=== PATIENT | female | born 1955 | race American Indian/Alaskan Native ===

== ENCOUNTER 2016-09-19 02:12 | Emergency (ER) | payer OTHER ==
[2016-09-19 02:22] VITALS: BP 182/81
[2016-09-19] MEDS ORDERED: Silver Nitrate Applicator Each TOP ONE (02:55)
[2016-09-19] MEDS ORDERED: Oxymetazoline 0.05% Nasal Spray 15 ML Bottle NAS ONE (02:55)
--- NOTE | 2016-09-19 02:59 | EDM.PDOC ---
ED HPI ENT - General Chief Complaint: ENT Problem Stated Complaint: BLOODY NOSE, WONT STOP Time Seen by Provider: 09/19/16 02:56 Source of Information: Reports: Patient History Limitations: Reports: No limitations - History of Present Illness INITIAL COMMENTS - FREE TEXT/NARRATIVE: blow her nose then started bleeding. - Related Data Allergies/ADRs: Allergies Allergy/AdvReac Type Severity Reaction Status Date / Time codeine Allergy Nausea and Verified 09/19/16 02:18 Vomiting Home Meds: Home Meds Acetaminophen [Tylenol] 650 mg PO DAILY 08/27/15 [History] Calcium Citrate/Vitamin D3 [Calcium Cit-Vit D 315-200] 1 tab PO DAILY 08/27/15 [ History] Cholecalciferol (Vitamin D3) [Vitamin D3] 1,000 unit PO DAILY 08/27/15 [History] Diclofenac Sodium [Voltaren 1% Gel] 1 applic TOP ASDIRECTED 08/27/15 [History] Fexofenadine [Poppy] 180 mg PO DAILY 08/27/15 [History] Ibuprofen 600 mg PO Q8H PRN 08/27/15 [History] Multivitamin [Multi-Vitamin Daily] 1 tab PO DAILY 08/27/15 [History] metFORMIN [Glucophage XR] 1 tab PO DAILY 09/19/16 [History] Past Medical History HEENT History: Reports: Cataract, Impaired vision, Other (see below) Other HEENT History: WEARS CORRECTIVE LENSES Cardiovascular History: Reports: None Respiratory History: Reports: None Gastrointestinal History: Reports: Colon polyp Genitourinary History: Reports: None 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: Musculoskeletal History: Reports: Other (see below) Other Musculoskeletal History: DEGENERATIVE JOINT DISEASE Neurological History: Reports: None Psychiatric History: Reports: None Endocrine/Metabolic History: Reports: Diabetes, type II, Obesity/BMI 30+ Hematologic History: Reports: None Immunologic History: Reports: None Oncologic (Cancer) History: Reports: None Dermatologic History: Reports: None - Infectious Disease History Infectious Disease History: Reports: Chicken pox, Measles, Mumps - Past Surgical History Head Surgeries/Procedures: Reports: None Cardiovascular Surgical History: Reports: None Respiratory Surgical History: Reports: None GI Surgical History: Reports: Appendectomy, Cholecystectomy, Colonoscopy, Polypectomy Female Surgical History: Reports: Tubal ligation Endocrine Surgical History: Reports: None Neurological Surgical History: Reports: None Musculoskeletal Surgical History: Reports: Other (see below) Other Musculoskeletal Surgeries/Procedures:: INJECTION IN BILAT HANDS Oncologic Surgical History: Reports: None Dermatological Surgical History: Reports: None Social & Family History - Family History Oncologic: Reports: Breast Other Oncologic Family History: sister and mother breast cancer - Tobacco Use Smoking Status *Q: Never Smoker Used Tobacco, but Quit: Yes Month Tobacco Last Used: 06/15/2009 Second Hand Smoke Exposure: No - Caffeine Use Caffeine Use: Reports: Coffee - Recreational Drug Use Recreational Drug Use: No Drug Use in Last 12 Months: No ED ROS ENT - Review of Systems Review Of Systems: ROS reveals no pertinent complaints other than HPI. ED EXAM, ENT - Physical Exam Exam: See Below Exam Limited By: No limitations General Appearance: alert, WD/WN, mild distress, other (nose bleed) Nose: dried blood, other (right hasslebach) Mouth/Throat: Normal inspection Head: atraumatic Neck: non-tender, full range of motion Respiratory/Chest: no respiratory distress Cardiovascular: regular rate, rhythm GI/Abdominal: soft, non tender Neurological: alert, oriented, normal cognition, normal gait, no motor/sensory deficits Psychiatric: normal affect, normal mood Skin: Warm, Dry Lymphatic: no adenopathy ED ENT PROCEDURES - Epistaxis Procedure Indication: epistaxis, uncontrolled Recent anticoagulants/antiplatlets: No Uncontrolled HTN: No Recent septal/nasal surgery: No Site of bleeding: right nare Clearing of clots: patient blew nose Topical Meds: phenylephrine Ice pack to area: No Chemical cautery: silver nitrate topical Local anesthesia - Lidocaine (Xylocaine): 1% plain Local anesthetic volume: 1cc Complications: No Course - Vital Signs Last Recorded V/S: Last Vital Signs Temp 37 C 09/19/16 02:21 Pulse 78 09/19/16 02:21 Resp 18 09/19/16 02:21 BP 182/81 H 09/19/16 02:21 Pulse Ox 98 09/19/16 02:21 - Orders/Labs/Meds Meds: Medications Discontinued Medications Generic Name Dose Route Start Last Admin Trade Name Freq PRN Reason Stop Dose Admin Oxymetazoline HCl 2 ml 09/19/16 02:55 09/19/16 03:03 Afrin Original 0.05% Nasal [place] CHIO 09/19/16 02:56 2 ml ONETIME ONE Administration Silver Nitrate 2 each 09/19/16 02:55 04/16/17 03:04 Silver Nitrate TOP 09/19/16 02:56 2 each ONETIME ONE Administration - Re-Assessments/Exams Free Text/Narrative Re-Assessment/Exam: 09/19/16 03:44 s/p cautery = no further bleeding noted. Pt feeling good wants to go home. Departure - Departure Time of Disposition: 03:45 Disposition: Home, Self-Care 01 Condition: good Clinical Impression: Epistaxis Instructions: Nosebleed, [id number] Forms: ED Department Discharge Additional Instructions: 1) next 48 hours avoid bending straining. 2) no hot drinks for 48 hours 3) don't blow or pick nose. 4) use vaseline apply with Q-tip if nose feels dry 5) use humidifier in room 6) recheck as needed
== END 2016-09-19 03:51 | disposition home or self-care (01) ==
LOC: DL.ED 02:12
DX: R04.0 Epistaxis (principal); E11.9 Type 2 diabetes mellitus without complications; E66.9 Obesity, unspecified; Z88.5 Allergy status to narcotic agent; Z79.84 Long term (current) use of oral hypoglycemic drugs; Z79.899 Other long term (current) drug therapy; Z90.49 Acquired absence of other specified parts of digestive tract; Z98.51 Tubal ligation status
CPT/HCPCS: 30901; 99283; A9270

== ENCOUNTER 2016-09-20 22:26 | Emergency (ER) | payer OTHER ==
[2016-09-20] MEDS ORDERED: Oxymetazoline 0.05% Nasal Spray 15 ML Bottle NAS ONE (22:31)
[2016-09-20 22:33] VITALS: BP 167/75
--- NOTE | 2016-09-20 22:49 | EDM.PDOC ---
ED HPI ENT - General Chief Complaint: ENT Problem Stated Complaint: BLOODY NOSE SINICE YESTERDAY Time Seen by Provider: 09/20/16 22:30 Source of Information: Reports: Patient History Limitations: Reports: No limitations - History of Present Illness INITIAL COMMENTS - FREE TEXT/NARRATIVE: Minnie Garrison is a 60 year old female presenting to the ED with recurrence of a right sided nose bleed. She was seen yesterday morning with a right sided anterior nose bleed resolved with nasal packing, application of silver nitrate, and Afrin nasal spray. She was doing well at home until this evening. 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 She was able to slow the bleeding with direct pressure but there is still dripping. She last took Afrin nasal spray this morning. She denies history of bleeding or clotting disorders. She does have a history of allergies and wonders if this may be causing her trouble. - Related Data Allergies/ADRs: Allergies Allergy/AdvReac Type Severity Reaction Status Date / Time codeine Allergy Nausea and Verified 09/20/16 22:34 Vomiting Home Meds: Home Meds Acetaminophen [Tylenol] 650 mg PO DAILY 08/27/15 [History] Calcium Citrate/Vitamin D3 [Calcium Cit-Vit D 315-200] 1 tab PO DAILY 08/27/15 [ History] Cholecalciferol (Vitamin D3) [Vitamin D3] 1,000 unit PO DAILY 08/27/15 [History] Fexofenadine [Poppy] 180 mg PO DAILY 08/27/15 [History] Ibuprofen 600 mg PO Q8H PRN 08/27/15 [History] Multivitamin [Multi-Vitamin Daily] 1 tab PO DAILY 08/27/15 [History] metFORMIN [Glucophage XR] 1 tab PO DAILY 09/19/16 [History] Past Medical History HEENT History: Reports: Cataract, Impaired vision, Other (see below) Other HEENT History: WEARS CORRECTIVE LENSES Cardiovascular History: Reports: None Respiratory History: Reports: None Gastrointestinal History: Reports: Colon polyp Genitourinary History: Reports: None 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: Musculoskeletal History: Reports: Other (see below) Other Musculoskeletal History: DEGENERATIVE JOINT DISEASE Neurological History: Reports: None Psychiatric History: Reports: None Endocrine/Metabolic History: Reports: Diabetes, type II, Obesity/BMI 30+ Hematologic History: Reports: None Immunologic History: Reports: None Oncologic (Cancer) History: Reports: None Dermatologic History: Reports: None - Infectious Disease History Infectious Disease History: Reports: Chicken pox, Measles, Mumps - Past Surgical History Head Surgeries/Procedures: Reports: None Cardiovascular Surgical History: Reports: None Respiratory Surgical History: Reports: None GI Surgical History: Reports: Appendectomy, Cholecystectomy, Colonoscopy, Polypectomy Female Surgical History: Reports: Tubal ligation Endocrine Surgical History: Reports: None Neurological Surgical History: Reports: None Musculoskeletal Surgical History: Reports: Other (see below) Other Musculoskeletal Surgeries/Procedures:: INJECTION IN BILAT HANDS Oncologic Surgical History: Reports: None Dermatological Surgical History: Reports: None Social & Family History - Family History Oncologic: Reports: Breast Other Oncologic Family History: sister and mother breast cancer - Tobacco Use Smoking Status *Q: Never Smoker Used Tobacco, but Quit: Yes Month Tobacco Last Used: 06/15/2009 Second Hand Smoke Exposure: No - Caffeine Use Caffeine Use: Reports: Coffee - Recreational Drug Use Recreational Drug Use: No Drug Use in Last 12 Months: No ED ROS ENT - Review of Systems Review Of Systems: ROS reveals no pertinent complaints other than HPI. Constitutional: Reports: no symptoms. Denies: fever, chills HEENT: Reports: Other (see HPI) Respiratory: Reports: No Symptoms. Denies: Shortness of Breath Cardiovascular: Reports: No symptoms. Denies: Chest pain GI/Abdominal: Reports: No symptoms Musculoskeletal: Reports: no symptoms Skin: Reports: no symptoms Neurological: Reports: No Symptoms Hematologic/Lymphatic: Reports: no symptoms (no history of nosebleeds prior to yesterday) ED EXAM, ENT - Physical Exam Exam: See Below Exam Limited By: No limitations General Appearance: alert Eye Exam: bilateral eye: PERRL Ears: normal external exam Nose: active bleeding, other (right anterior nare towards the nasal septum with area of avina discoloration consistent with recent silver nitrite application; there is minimal ozing of blood just anterior to this area; no bleeding from the left nare) Mouth/Throat: Other (area of blood staining in the back of the throat from drainage) Head: atraumatic, normocephalic Neck: normal inspection, supple, non-tender Respiratory/Chest: no respiratory distress, lungs clear, normal breath sounds Cardiovascular: regular rate, rhythm, no murmur GI/Abdominal: soft, non tender Extremities: normal inspection Neurological: alert, oriented Psychiatric: normal affect Skin: Warm, Dry, No rash Lymphatic: no adenopathy Course - Vital Signs Last Recorded V/S: Last Vital Signs Temp 96.7 F 09/20/16 22:29 Pulse 75 09/20/16 22:29 Resp 18 09/20/16 22:29 BP 167/75 H 09/20/16 22:29 Pulse Ox 100 09/20/16 22:29 - Orders/Labs/Meds Meds: Medications Discontinued Medications Generic Name Dose Route Start Last Admin Trade Name [place] PRN Reason Stop Dose Admin Oxymetazoline HCl 1 ml 09/20/16 22:31 09/20/16 22:42 Afrin Original 0.05% Nasal [place] CHIO 09/20/16 22:32 1 ml ONETIME ONE Administration - Re-Assessments/Exams Free Text/Narrative Re-Assessment/Exam: Discussed treatment options for recurrence of what appears to be an anterior nasal bleed in the right nare. I would recommend a trial of blowing the nose of the clots, application of Afrin nasal spray, and constant nasal pressure for up to 30 minutes followed by re-evaluation. If that is unsuccessful, rhino-rocket can be considered. 09/20/16 23:17 Free Text/Narrative Re-Assessment/Exam: Patient re-evaluated after the intervention with afrin and nasal pressure. The site of oozing in the right nare has stopped and she is no longer bleeding. She reports her nose feels much better and clear. 09/20/16 23:31 Departure - Departure Time of Disposition: 23:41 Disposition: Home, Self-Care 01 Condition: good Clinical Impression: Nasal bleeding Forms: ED Department Discharge Additional Instructions: Please follow-up with your PCP when able. - Problem List Review Problem List Initiated/Reviewed/Updated: Yes - Assessment/Plan Assessment:: right anterior nasal bleed Plan: Patient was treated in the ED for a right nare anterior nose bleed. She responded favorably to nose blowing to remove the clots followed by afrin and nasal pressure. This is a continuation of a nose bleed she had yesterday AM. Apparently her house is kept very hot with the heater running and she has a history of allergies. I would recommend the following: avoid manipulation of the nose for the next few days to prevent re-bleeding, adding a cool mist humidifier, and follow-up with her PCP to evaluate the cause of her prolonged bleeding during this nose-bleed. Questions were answered and worrisome symptoms prompting return to the ED were discussed.
== END 2016-09-20 23:52 | disposition home or self-care (01) ==
LOC: DL.ED 22:26
DX: R04.0 Epistaxis (principal); E11.9 Type 2 diabetes mellitus without complications; E66.9 Obesity, unspecified; Z88.5 Allergy status to narcotic agent; Z79.899 Other long term (current) drug therapy; Z79.84 Long term (current) use of oral hypoglycemic drugs; Z90.49 Acquired absence of other specified parts of digestive tract
CPT/HCPCS: 99283; A9270

== ENCOUNTER 2016-10-31 15:29 | Emergency (ER) | payer OTHER ==
--- NOTE | 2016-10-31 16:00 | EDM.PDOC ---
ED HPI GENERAL MEDICAL PROBLEM - General Chief Complaint: Skin Complaint Stated Complaint: LIP EXTREMELY SWOLLEN, [id number] Time Seen by Provider: 10/31/16 16:00 Source of Information: Reports: Patient History Limitations: Reports: No Limitations - History of Present Illness INITIAL COMMENTS - FREE TEXT/NARRATIVE: REdness and swellling in right chin area for 3 days. Unsure if initially was a "spider bite"? She said initially just red, now swollen and red, draining serosang d/c. no diff breathing or swallowing. - Related Data Allergies Allergy/AdvReac Type Severity Reaction Status Date / Time codeine Allergy Nausea and Verified 10/31/16 15:57 Vomiting Home Meds: Home Meds Acetaminophen [Tylenol] 650 mg PO DAILY 08/27/15 [History] Calcium Citrate/Vitamin D3 [Calcium Cit-Vit D 315-200] 1 tab PO DAILY 08/27/15 [ History] Cholecalciferol (Vitamin D3) [Vitamin D3] 1,000 unit PO DAILY 08/27/15 [History] Fexofenadine [Poppy] 180 mg PO DAILY 08/27/15 [History] Ibuprofen 600 mg PO Q8H PRN 08/27/15 [History] Multivitamin [Multi-Vitamin Daily] 1 tab PO DAILY 08/27/15 [History] metFORMIN [Glucophage XR] 1 tab PO DAILY 09/19/16 [History] Past Medical History HEENT History: Reports: Cataract, Impaired Vision, Other (See Below) Other HEENT History: WEARS CORRECTIVE LENSES Cardiovascular History: Reports: None Respiratory History: Reports: None Gastrointestinal History: Reports: Colon Polyp Genitourinary History: Reports: 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: Musculoskeletal History: Reports: Other (See Below) Other Musculoskeletal History: DEGENERATIVE JOINT DISEASE Neurological History: Reports: None Psychiatric History: Reports: None Endocrine/Metabolic History: Reports: Diabetes, Type II, Obesity/BMI 30+ Hematologic History: Reports: None Immunologic History: Reports: None Oncologic (Cancer) History: Reports: None Dermatologic History: Reports: None - Infectious Disease History Infectious Disease History: Reports: Chicken Pox, Measles, Mumps - Past Surgical History Female Surgical History: Reports: Tubal Ligation Musculoskeletal Surgical History: Reports: Other (See Below) Social & Family History - Family History Family Medical History: Noncontributory Oncologic: Reports: Breast Other Oncologic Family History: sister and mother breast cancer - Tobacco Use Smoking Status *Q: Never Smoker Used Tobacco, but Quit: Yes Month Tobacco Last Used: 06/15/2009 Second Hand Smoke Exposure: No - Caffeine Use Caffeine Use: Reports: Coffee - Recreational Drug Use Recreational Drug Use: No Drug Use in Last 12 Months: No ED ROS GENERAL - Review of Systems Review Of Systems: See Below HEENT: Reports: Other (redness and swelling in right chin area for 3 days) Respiratory: Reports: No Symptoms Cardiovascular: Reports: No Symptoms Endocrine: Reports: No Symptoms GI/Abdominal: Reports: No Symptoms : Reports: No Symptoms Musculoskeletal: Reports: No Symptoms Skin: Reports: Other (see above) Neurological: Reports: No Symptoms Psychiatric: Reports: No Symptoms Hematologic/Lymphatic: Reports: No Symptoms Immunologic: Reports: No Symptoms ED EXAM, SKIN/RASH Exam: See Below Exam Limited By: No Limitations General Appearance: Alert Ears: Normal External Exam, Normal Canal, Normal TMs Nose: Normal Inspection, Normal Mucosa Throat/Mouth: Normal Inspection, Normal Lips, Normal Teeth, Normal Gums, Normal Oropharynx, Normal Voice, No Airway Compromise Head: Atraumatic, Normocephalic Neck: Normal Inspection, Supple, Non-Tender Respiratory/Chest: No Respiratory Distress, Lungs Clear, Normal Breath Sounds, No Accessory Muscle Use, Chest Non-Tender Cardiovascular: Normal Peripheral Pulses, Regular Rate, Rhythm GI/Abdominal: Normal Bowel Sounds, Soft, Non-Tender, No Distention (Female) Exam: Normal External Exam, Normal Speculum Exam Back Exam: Normal Inspection Extremities: Normal Inspection, Normal Range of Motion Neurological: Alert, Oriented Psychiatric: Normal Affect, Normal Mood Skin: Other (right lat chin mod edema, induration and erythema approx 3cm by 3cm , serosang d/c, tender to palpation) Course - Vital Signs Text/Narrative:: Pt is diabetic and will treat agressively with antibiotics. Control pain. F/u pcp next week recheck. Given clinda for home use tomorrow and script for ongoing dosing. Given script norco and zofran. Last Recorded V/S: Last Vital Signs Temp 37.7 C 10/31/16 15:46 Pulse 99 10/31/16 15:46 Resp 16 10/31/16 15:46 BP 159/70 H 10/31/16 15:46 Pulse Ox 99 10/31/16 15:46 - Orders/Labs/Meds Orders: Active Orders 24 hr Category Date Time Status POC Glucose [Blood Glucose Check, Bedside] [] ONETIME Care 10/31/16 18:02 Active Sodium Chloride 0.9% [Normal Saline] 500 ml Med 10/31/16 16:15 Active IV .BOLUS Medication Orders Sodium Chloride (Normal Saline) 500 mls @ 500 mls/hr IV .BOLUS ELMER Last Admin: 10/31/16 16:33 Dose: 500 mls/hr Labs: Laboratory Tests 10/31/16 10/31/16 10/31/16 Range/Units 16:12 16:12 17:27 WBC 8.1 (5.0-10.0) 10^3/uL RBC 4.50 (4.2-5.4) 10^6/uL Hgb 13.4 (12.0-16.0) g/dL Hct 39.8 (37.0-47.0) % MCV 88.4 (80-100) fL MCH 29.8 (27.0-34.0) pg MCHC 33.7 (33.0-35.0) g/dL Plt Count 285 (150-450) 10^3/uL Neut % (Auto) 66.0 (42.2-75.2) % Lymph % (Auto) 25.1 (20.5-50.1) % [place] % (Auto) 6.9 (2-8) % Eos % (Auto) 1.9 (1.0-3.0) % Baso % (Auto) 0.1 (0.0-1.0) % POC Glucose 146 H (70-105) mg/dl C-Reactive Protein 6.1 H (0.0-1.3) mg/dL Meds: Medications Generic Name Dose Route Start Last Admin Trade Name Freq PRN Reason Stop Dose Admin Sodium Chloride 500 mls @ 500 mls/hr 10/31/16 16:15 10/31/16 16:33 Normal Saline IV 500 mls/hr .BOLUS ELMER Administration Discontinued Medications Generic Name Dose Route Start Last Admin Trade Name Freq PRN Reason Stop Dose Admin Hydrocodone Bitart/Acetaminophen Confirm 10/31/16 17:10 [place] 325-10 Mg Administered 10/31/16 17:11 Dose 4 tab .ROUTE .STK-MED ONE Clindamycin HCl Confirm 10/31/16 17:10 Cleocin Administered 10/31/16 17:11 Dose 600 mg .ROUTE .STK-MED ONE Hydromorphone HCl 1 mg 10/31/16 16:07 10/31/16 16:34 Dilaudid IVPUSH 10/31/16 16:08 1 mg ONETIME ONE Administration Clindamycin Phosphate 900 mg/ 106 mls @ 200 mls/hr 10/31/16 16:06 10/31/16 16 :34 Sodium Chloride IV 10/31/16 16:37 200 mls/hr ONETIME ONE Administration Ondansetron HCl 4 mg 10/31/16 16:07 10/31/16 16:34 Zofran IV 10/31/16 16:08 4 mg ONETIME ONE Administration Ondansetron HCl 4 mg 10/31/16 17:20 Zofran IV 10/31/16 17:21 ONETIME ONE Ondansetron HCl Confirm 10/31/16 18:01 Zofran Odt Administered 10/31/16 18:02 Dose 8 mg .ROUTE .STK-MED ONE Promethazine HCl 12.5 mg 10/31/16 18:21 Phenergan IM 10/31/16 18:22 ONETIME ONE Departure - Departure Time of Disposition: 18:00 Disposition: Home, Self-Care 01 Condition: good Clinical Impression: Facial cellulitis, Cellulitis - Discharge Information Instructions: Cellulitis, Adult Forms: ED Department Discharge Additional Instructions: Antibiotic as directed. Pain medicine as needed. See your primary provider this week for recheck. - My Orders Last 24 Hours: My Active Orders 10/31/16 16:15 Sodium Chloride 0.9% [Normal Saline] 500 ml IV .BOLUS 10/31/16 18:02 POC Glucose [Blood Glucose Check, Bedside] [RC] ONETIME - Assessment/Plan Last 24 Hours: My Active Orders 10/31/16 16:15 Sodium Chloride 0.9% [Normal Saline] 500 ml IV .BOLUS 10/31/16 18:02 POC Glucose [Blood Glucose Check, Bedside] [RC] ONETIME
[2016-10-31] MEDS ORDERED: Clindamycin Phosphate 900 MG in Sodium Chloride 0.9% 100 ML IV ONE (16:06)
[2016-10-31] MEDS ORDERED: HYDROmorphone 1 MG/ML Syringe IVPUSH ONE (16:07)
[2016-10-31] MEDS ORDERED: Ondansetron 4 MG/2 ML SDV IV ONE ×2 (16:07→17:20)
[2016-10-31] MEDS ORDERED: Sodium Chloride 0.9% 500 ML IV SCH (16:15)
[2016-10-31] MEDS ORDERED: Acetaminophen/HYDROcodone 325-10 MG Tab ONE (17:10)
[2016-10-31] MEDS ORDERED: Clindamycin HCl 150 MG Cap ONE (17:10)
[2016-10-31] MEDS ORDERED: Clindamycin HCl 150 MG Cap PO ONE (17:10)
[2016-10-31] MEDS ORDERED: Acetaminophen/HYDROcodone 325-10 MG Tab PO ONE (17:10)
[2016-10-31] MEDS ORDERED: Ondansetron 4 MG Tab.DIS PO ONE (18:01)
[2016-10-31] MEDS ORDERED: Ondansetron 4 MG Tab.DIS ONE (18:01)
[2016-10-31] MEDS ORDERED: Promethazine 25 MG/ML SDV IM ONE (18:21)
[2016-10-31 18:40] VITALS: BP 132/68
== END 2016-10-31 18:40 | disposition home or self-care (01) ==
LOC: DL.ED 15:29
DX: L03.211 Cellulitis of face (principal); E11.9 Type 2 diabetes mellitus without complications; E66.9 Obesity, unspecified; Z88.5 Allergy status to narcotic agent; Z79.899 Other long term (current) drug therapy; Z79.84 Long term (current) use of oral hypoglycemic drugs; Z98.51 Tubal ligation status
CPT/HCPCS: 36415; 82962; 85025; 86140; 96365; 96372; 96375; 99283; J1170; J2405; J2550; J7040; J7050; A9270-GY; S0077